=== PATIENT | female | born 1995 | race Caucasian/White ===

== ENCOUNTER 2024-06-02 08:44 | Emergency (ER) | payer OTHER ==
[~2024-06-02] VITALS: Ht 177.8 cm; Wt 61.2 kg
[2024-06-02] MEDS ORDERED: Adderall Xr 2020 MG PO (08:58)
[2024-06-02] MEDS ORDERED: HYDHCL25 PO (08:59)
[2024-06-02] MEDS ORDERED: NAPROXEN500 MG PO (08:59)
[2024-06-02] MEDS ORDERED: PROP10 PO (08:59)
[2024-06-02] MEDS ORDERED: XANAX0.25 MG PO (09:00)
[2024-06-02] MEDS ORDERED: HYDROmorphone HCl/Pf 1MG SYR IV ONE (09:20)
[2024-06-02] MEDS ORDERED: HYDR1TAB94 PO (10:34)
== END 2024-06-02 11:05 | disposition home or self-care (01) ==
LOC: ER 08:44
DX: S52.611A Displaced fracture of right ulna styloid process, initial encounter for closed fracture (principal); S52.501A Unspecified fracture of the lower end of right radius, initial encounter for closed fracture; V48.5XXA Car driver injured in noncollision transport accident in traffic accident, initial encounter; Z79.891 Long term (current) use of opiate analgesic; Z79.899 Other long term (current) drug therapy
CPT/HCPCS: 25605; 73100; 73110; 96374-59; 99284-25; J1171

== ENCOUNTER 2024-06-07 09:48 | Day surgery (SDC) | payer OTHER ==
[~2024-06-07] VITALS: Ht 177.8 cm; Wt 62.9 kg
[~2024-06-07 09:48] MED LIST: Adderall Xr 2020 MG PO; Bupivacaine 0.5% HCl 5 MG/ML 30MLVIAL ONE; Bupivacaine 0.5% W/EPI 1:200000 SDV 30 ML Vial ONE; CeFAZolin Sodium 2,000 MG VIAL ONE; HYDHCL25 PO; HYDR1TAB94 PO; Lactated Ringer's 1,000 ML IV ONE; Midazolam HCl 1MG / ML 2ML Vial ONE; NAPROXEN500 MG PO; PROP10 PO; XANAX0.25 MG PO; propofoL 20 ML IV ONE
[2024-06-07] MEDS ORDERED: Lactated Ringer's 1,000 ML IV ONE (10:21)
--- NOTE | 2024-06-07 10:33 | NUR ---
06/07/24 1033 [facility] TIME OUT AT 1025. DR VEGA PERFORMS VERVE BLOCK. PT TOLERATED BLOCK WELL.
[2024-06-07] MEDS ORDERED: Ondansetron HCl 2 MG / ML 2ML Vial ONE (10:43)
[2024-06-07] MEDS ORDERED: Ketorolac Tromethamine 30mg Vial ONE (10:43)
[2024-06-07] MEDS ORDERED: Dexamethasone Sod Phos 10 MG/ML 1ML VIAL ONE (10:43)
[2024-06-07] MEDS ORDERED: FentaNYL Citrate 50 MCG/ML 2 ML Injection ONE (10:51)
--- NOTE | 2024-06-07 11:42 | NUR ---
06/07/24 1142 Mamta Corrales PT ASLEEP UPON ARRIVAL TO PACU. VSS. RIGHT FINGERS PINK, WARM AND DRY. DRESSING CDI. RIGHT FINGERS CAP REFILL <3 SECONDS. PATIENT NOT AROUSABLE TO VERBAL STIMULI AT THIS TIME. SUPINE, HOB AT 20 DEGREES.
--- NOTE | 2024-06-07 12:03 | NUR ---
06/07/24 1203 Mamta Corrales REPORT GIVEN TO YOUNG SHANNON
[2024-06-07] MEDS ORDERED: OxyCODONE HCL 5 MG TAB ONE (12:22)
== END 2024-06-07 13:25 | disposition home or self-care (01) ==
LOC: ORSCSDS 09:48
PROVIDERS: Orthopaedic Surgery
PROC: 0PSH04Z Reposition Right Radius with Internal Fixation Device, Open Approach (ICD-10-PCS; principal; 2024-06-07 11:00)
DX: S52.571A Other intraarticular fracture of lower end of right radius, initial encounter for closed fracture (principal); S52.611A Displaced fracture of right ulna styloid process, initial encounter for closed fracture; V49.9XXA Car occupant (driver) (passenger) injured in unspecified traffic accident, initial encounter; F90.9 Attention-deficit hyperactivity disorder, unspecified type; F41.9 Anxiety disorder, unspecified; F32.A Depression, unspecified; Z79.899 Other long term (current) drug therapy
CPT/HCPCS: A9270; C1713; J0690; J1100; J1885; J2250; J2405; J2704; J3010; J7120